=== PATIENT | female | born 1935 | race Caucasian/White ===

== ENCOUNTER 2018-12-17 17:47 | Inpatient (IN) | payer OTHER ==
[~2018-12-17] VITALS: Ht 160 cm; Wt 77.1 kg
[2018-12-17 17:57] VITALS: BP 186/67
[2018-12-17 18:09] LABS: ABSOLUTE NEUTROPHILS 4.6 thou/uL (1.4-8.2); BASOPHILS 0.7 % (0.0-2.0); EOSINOPHILS 3.6 % (0.0-3.0); HEMATOCRIT 41.9 % (37.0-47.0); HEMOGLOBIN 13.8 gm/dL (12.0-15.0); LYMPHOCYTES 12.4 % (24.0-44.0); MCH 28.7 pg (26.0-34.0); MONOCYTES 7.4 % (1.0-8.0); PLATELET COUNT 247 thou/uL (150-400); POLYS 75.9 % (36.0-66.0); RBC 4.82 mil/uL (4.20-5.00); RDW 14.3 % (10.5-14.5)
[2018-12-17 18:15] LABS: ANION GAP 11 mmol/L (7-16); BUN 23 mg/dL (7-18); CALCIUM 9.1 mg/dL (8.5-10.1); CHLORIDE 102 mmol/L (98-107); CO2 26 mmol/L (21-32); CREATININE 1.1 mg/dL (0.6-1.0); GLUCOSE 144 mg/dL (74-106); POTASSIUM 3.6 mmol/L (3.5-5.1); SODIUM 139 mmol/L (136-145)
[2018-12-17 18:23] LABS: POC CA IONIZED 4.5 mg/dL (4.5-5.3); POC CREATININE 0.9 mg/dL (0.6-1.3); POC HEMOGLOBIN 14.6 g/dL (12.0-15.0); POC POTASSIUM 3.6 mmol/L (3.5-5.1)
[2018-12-17 18:26] LABS: ALBUMIN 3.7 g/dL (3.4-5.0); SGOT 14 U/L (15-37); SGPT 23 U/L (30-65); TOTAL BILIRUBIN 0.4 mg/dL (<0.1-1.0); TOTAL PROTEIN 8.1 g/dL (6.4-8.2); TROPONIN-I <0.06 ng/mL (<0.06)
[2018-12-17 20:04] VITALS: BP 179/97
[2018-12-17 20:42] VITALS: BP 169/84
[2018-12-17 21:15] VITALS: BP 192/82
--- NOTE | 2018-12-17 22:18 | NUR ---
ADMISSION NOTE: ALERT AND ORIENTED, SHE IS VERY TALKATIVE AND FRIENDLY. EXPLAINS THAT HER HAND WEAKNESS STARTED AROUND 1 PM IN THE AFTERNOON AND SHE WAS UNCERTAIN IF IT WAS REALLY SOMETHING DIFFERENT OR NOT. SHE PLAYED HER PIANO TODAY SHE DOES MOST DAYS AND SHE REALIZED THAT SHE HAD LOST HER FLEXIBILITY AND COORDINATION. HER BLOOD PRESSURE IS ELEVATED AND SHE STATED THAT SHE IS IS A NON INSULIN DEPENDENT DIABETIC. SHE IS SITTING UP READING AT THIS TIME. SHE HAS BEEN IDENTIFIED A FALL RISK AND HAS BEEN INSTRUCTED TO CALL FOR ASSISTANCE OUT OF BED. ORIENTED TO ROOM AND SURROUNDINGS.
[2018-12-17] MEDS ORDERED: HYDROCHLOROTHIA25 M2 PO (22:34)
[2018-12-17] MEDS ORDERED: DILTIAZEM 24HR240 M1 PO (22:41)
[2018-12-17] MEDS ORDERED: COZAAR 25 MG TA25 M1 PO (22:44)
[2018-12-17] MEDS ORDERED: LOPRESSOR50 PO (22:45)
[2018-12-17 23:38] VITALS: BP 169/126
[2018-12-18 03:40] VITALS: BP 157/73
--- NOTE | 2018-12-18 04:51 | NUR ---
resting quietly tonight. recieved order for blood pressure medication for systolic greater than 200. she continues to have difficulty with her left and hand finger corridination. no improvement, or change in her symptoms tonight.
[2018-12-18 06:10] LABS: CHOLESTEROL 201 mg/dL (<200); HDL CHOLESTEROL 85 mg/dL (>40); LDL CHOLESTEROL 91 mg/dL (<100); TC:HDL 2.4 Ratio (Not establshd); TRIGLYCERIDE 129 mg/dL (<150); VLDL 26 mg/dL (<40)
[2018-12-18 06:11] LABS: SERUM ASSESSMENT Clear
[2018-12-18 07:45] VITALS: BP 128/59
[2018-12-18 13:17] VITALS: BP 128/59
--- NOTE | 2018-12-18 13:22 | NUR ---
PATIENT WILL BE DISCHARGED HOME TODAY. SHE IS ALER ORIENTED X3. STATES PAIN THE LEFT HAND IS ABOUT THE SAME BUT STATES SHE WILL NOT REQUIRE PAIN MEDICATION. NEURO SAW HER AND THOUGH SHE CAN FOLLOW UP OUTPATIENT. WILL DISCUSS DISCHARGE PLANS WITH PATIENT.
--- NOTE | 2018-12-18 13:39 | EKG ---
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 : 1935 Requested By: Chaim Pastor Order Number: [id number] MD: Ignacio Redding Measurements Intervals [place] Rate: 84 P: 19 HI: 201 QRS: 9 QRSD: 89 T: 11 QT: 396 QTc: 469 Interpretive Statements Sinus rhythm Atrial premature complexes in couplets Compared to ECG 09/26/2003 13:38:15 Atrial premature complex(es) now present Electronically Signed On 12-18-2018 13:39:28 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
[2018-12-19 00:07] LABS: GLYCOHEMOGLOBIN (HGB A1C) 6.8 % (4.8-5.6)
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
== END 2018-12-18 14:17 | disposition home or self-care (01) | DRG 73 ==
LOC: ER 17:47 → EROBS 19:45 → 3W 20:43
PROVIDERS: Emergency Medicine; Nurse Practitioner Acute Care; ADMIT Hospitalist
DX: G56.32 Lesion of radial nerve, left upper limb (principal); E43 Unspecified severe protein-calorie malnutrition; N18.9 Chronic kidney disease, unspecified; I12.9 Hypertensive chronic kidney disease with stage 1 through stage 4 chronic kidney disease, or unspecified chronic kidney disease; M19.90 Unspecified osteoarthritis, unspecified site; E11.22 Type 2 diabetes mellitus with diabetic chronic kidney disease; Z82.49 Family history of ischemic heart disease and other diseases of the circulatory system; Z85.3 Personal history of malignant neoplasm of breast; Z82.3 Family history of stroke; Z79.899 Other long term (current) drug therapy
CPT/HCPCS: 10879